=== PATIENT | male | born 1990 | race Caucasian/White ===

== ENCOUNTER 2019-06-12 16:39 | Emergency (ER) | payer OTHER ==
[2019-06-12 16:49] VITALS: BP 148/99
[2019-06-12] MEDS ORDERED: HYDROcod/ACET 5/325 Prepack 4 PO STA (17:00)
[2019-06-12] MEDS ORDERED: predniSONE 20 MG TABLET PO STA (17:00)
[2019-06-12] MEDS ORDERED: GABAPENTIN 100 MG CAPSULE PO STA (17:00)
--- NOTE | 2019-06-12 17:02 | ED Physician Documentation ---
PD HPI BACK PAIN - Stated complaint Stated Complaint: BILAT LEG / LOWER BACK PAIN - Chief complaint Chief Complaint: Back Pain - History obtained from History obtained from: Patient (29-year-old gentleman developed low back pain last night with bilateral thigh pain. There is no weakness, numbness, tingling, saddle anesthesia, fevers.) Review of Systems Constitutional: denies: Fever, Chills Nose: denies: Rhinorrhea / runny nose, Congestion Cardiac: denies: Chest pain / pressure Respiratory: denies: Dyspnea, Cough PD PAST MEDICAL HISTORY - Present Medications Home Medications: Ambulatory Orders Medication Instructions Recorded Confirmed Gabapentin [Neurontin] 300 mg PO TID #30 capsule 06/12/19 predniSONE [Deltasone] 20 mg PO [id number] #21 tab 06/12/19 - Allergies Allergies/Adverse Reactions: Allergies Allergy/AdvReac Type Severity Reaction Status Date / Time No Known Drug Allergies Allergy Verified 06/12/19 16:49 PD ED PE NORMAL - Vitals Vital signs reviewed: Yes - General General: Alert and oriented X 3, No acute distress - HEENT HEENT: PERRL, EOMI - Neck Neck: Supple, no meningeal sign, No bony TTP - Cardiac Cardiac: RRR, No murmur - Respiratory Respiratory: No respiratory distress, Clear bilaterally - Extremities Extremities: Other (No midline spinal tenderness, he has significantly diminished L4-L5 reflex on the right compared to the left, but only slightly diminished sensation in the right thigh compared with the left. Strength is normal throughout including flexion and extension of the ankles and knees.) - Neuro Neuro: Alert and oriented X 3, Normal speech Results - Vitals Vitals: Vital Signs - 24 hr 06/12/19 16:46 Temperature 36.6 C Heart Rate 82 Respiratory 14 Rate Blood Pressure 148/99 H O2 Saturation 99 Oxygen O2 Source Room air PD MEDICAL DECISION MAKING - ED course ED course: This is a young man who presents with a L4-L5 right-sided radiculopathy which is treated with steroids and gabapentin pending primary care follow-up. Departure - Departure Disposition: 01 Home, Self Care Clinical Impression: Lumbar radiculopathy, acute Condition: Good Record reviewed to determine appropriate education?: Yes Instructions: ED Sciatica Prescriptions: Gabapentin [Neurontin] 300 mg PO TID #30 capsule predniSONE [Deltasone] 20 mg PO [id number] #21 tab Comments: Call your doctor to arrange a follow-up appointment, make the next available appointment. In the interim, return anytime if worse or if new symptoms develop. Your blood pressure was elevated today on check into the emergency department. This does not mean that you have hypertension, it is a common phenomenon to come to the emergency department and have elevated blood pressure. I recommend that you see your primary care physician within the week to have it rechecked when you are feeling better.
== END 2019-06-12 17:19 | disposition home or self-care (01) ==
LOC: ED 16:39
DX: M54.16 Radiculopathy, lumbar region (principal); R03.0 Elevated blood-pressure reading, without diagnosis of hypertension
CPT/HCPCS: 99282; 99283; A9270; J7512